=== PATIENT | female | born 1980 | race Caucasian/White ===

== ENCOUNTER 2020-12-31 13:30 | Emergency (ER) | payer OTHER ==
[~2020-12-31] VITALS: Ht 165.1 cm; Wt 61.2 kg
[~2020-12-31 13:30] MED LIST: MOTRIN800 MG PO; TRAMADOL HCL50 MG PO
[2020-12-31] MEDS ORDERED: NAPROSYN500 MG PO (14:09)
== END 2020-12-31 14:54 | disposition home or self-care (01) ==
LOC: ED 13:30
DX: R59.0 Localized enlarged lymph nodes (principal); M54.2 Cervicalgia; R50.9 Fever, unspecified; Z91.013 Allergy to seafood; Z98.890 Other specified postprocedural states